=== PATIENT | female | born 1975 | race Caucasian/White ===

== ENCOUNTER 2020-02-15 04:03 | Emergency (ER) | payer BC, SELFPAY ==
[2020-02-15 04:11] VITALS: BP 128/88; PULSE 96; RESP 16; TEMP 36.9; O2SAT 99; BMI 21.2
--- NOTE | 2020-02-15 04:27 | W.ED.BACK ---
HPI - Back Pain/Injury General: Chief Complaint: Back Pain/Injury Stated Complaint: mid back pain Time Seen by Provider: 02/15/20 04:20 History of Present Illness: HPI Narrative: 44-year-old female presenting with back pain. She notes the pain is mainly on the left now. She started a couple of days ago with intermittent back pain, but she woke up at 1 AM with intense pain on the left side of her lower back. She has a history of kidney stones. She denies any fever. She is nauseated, but has not vomited. No blood in her urine. MD elicited complaint: back pain Pertinent past history: prior back pain and kidney stones Onset (ago): hour(s) Timing: constant Severity: severe Similar Symptoms Previously: Yes Quality: sharp and stabbing Location: lumbar spine and left flank Radiation: abdomen and groin Exacerbating factors: none Relieving factors: none Associated symptoms: Reports abdominal pain, chills and nausea; Deny dysuria, fever(s), hematuria, urinary urgency or vomiting Review of Systems Const: Reports: chills; Denies: fever(s) Eyes: Denies: blurry vision ENMT: Denies: odynophagia, swelling of lips/tongue or sinus pain Card: Denies: chest pain, palpitations or irregular heart rhythm Resp: Denies: dyspnea, productive cough, non-productive cough or wheezing GI: Reports: abdominal pain and nausea; Denies: vomiting : Denies: dysuria, urinary urgency or hematuria Musc: Reports: back pain; Denies: neck pain Skin/Breast: Denies: rash, pruritus or erythema Neuro: Denies: headache(s), dizziness, vertigo or seizure-like activity Psych: Denies: anxiety or auditory hallucinations Physical Exam Const: GENERAL APPEARANCE: well developed and other (in pain) ORIENTATION/CONSCIOUSNESS: Yes oriented to person, Yes oriented to place and Yes oriented to time HENMT: COMMON NORMALS: normocephalic, external ears normal and Normal external nose present HEAD & SCALP: normocephalic FACE & SINUS: normal facial exam NOSE: Normal external nose present and No nasal discharge present EXTERNAL EAR: Yes external ears normal Eye: COMMON NORMALS: Equal, round and reactive pupils present, EOMs intact bilaterally and conjunctivae normal EYELID: eyelids normal CONJUNCTIVA: Yes conjunctivae normal PUPIL: Yes Equal, round and reactive pupils present Neck/C-Spine: GENERAL: No tracheal deviation Chest: COMMONS NORMALS: normal inspection of the chest CHEST: No tenderness Resp: COMMON NORMALS: clear to auscultation bilaterally EFFORT & INSPECTION: No tachypneic, No respiratory distress, No retractions, No uses accessory muscles and No tracheal deviation AUSCULTATION: clear to auscultation bilaterally, no rhonchi, no wheezes and lung sounds not diminished Cardio: COMMON NORMALS: regular rate and regular rhythm RATE: regular rate RHYTHM: regular rhythm HEART SOUNDS: no murmurs PERIPHERAL PULSES: radial pulses present GI: INSPECTION: No abdominal distension AUSCULTATION: No Hyperactive bowel sounds present and No Hypoactive bowel sounds present PALPATION: No Guarding due to palpation present (GI) and No Rigid due to palpation PERCUSSION: no dullness to percussion and no tympanic to percussion : BLADDER/KIDNEY EXAM: Yes CVA tenderness on the left Back/Pelvis: GENERAL BACK: Yes CVA tenderness Neuro: SENSORIUM/ORIENTATION: Yes oriented to person, Yes oriented to place and Yes oriented to time Psych: COMMON NORMALS: mental status grossly normal Skin: COMMON NORMALS: no rashes or lesions noted GENERAL SKIN EXAM: no rashes or lesions noted Course Vital Signs: Vital signs: Vital Signs Temperature 98.4 F 02/15/20 04:11 Pulse Rate 100 02/15/20 06:16 Respiratory Rate 18 02/15/20 06:16 Blood Pressure 98/65 02/15/20 06:16 Pulse Oximetry 100 02/15/20 06:16 MDM - Back Pain/Injury MDM Narrative: Medical decision making narrative: 44-year-old female with complaints of left flank pain. No fever. She has a white count of 10.5. Her creatinine is 1. She has hematuria by urinalysis. No definite infection. Awaiting CT findings. There appears to be a UVJ stone. Lab Data: Labs: Lab Results 02/15/20 02/15/20 02/15/20 Range/Units 04:21 04:21 04:29 WBC 10.5 H (4.0-10.0) 10^3/ uL RBC 4.36 (4.1-5.3) 10^6/u L Hgb 13.6 (11.5-15.3) g/dL Hct 41.9 (37.0-47.0) % MCV 96.1 (81-99) fL MCH 31.2 (28.0-34.0) pg MCHC 32.5 (30.0-36.0) g/dL RDW 11.5 L (12.1-15.1) % Plt Count 244 (130-400) 10^3/c mm MPV 10.4 (7.4-10.4) fL Neut % (Auto) 72.8 % Lymph % (Auto) 19.0 % [place] % (Auto) 5.7 % Eos % (Auto) 1.6 % Baso % (Auto) 0.5 % Neut # (Auto) 7.65 (1.8-7.7) 10^3/u L Lymph # (Auto) 2.0 (0.8-4.8) 10^3/u L [place] # (Auto) 0.6 (0.2-0.9) 10^3/u L Eos # (Auto) 0.2 (0.0-0.8) 10^3/u L Baso # (Auto) 0.1 (0.0-0.1) 10^3/u L Nucleated RBC % (a uto) 0 % Nucleated RBCs # 0.0 /100WBC Sodium (136-145) mmol/L Potassium (3.5-5.1) mmol/L Chloride (98-107) mmol/L Carbon Dioxide (22-29) mmol/L Anion Gap (5-19) BUN (6-20) mg/dL Creatinine (0.5-0.9) mg/dL GFR Calculation (90-130) mL/min Glucose (65-115) mg/dL Calculated Osmolal ity (285-295) mOsm/k g Calcium (8.5-10.5) mg/dL Total Bilirubin (0.15-1.2) mg/dL AST (0-32) U/L ALT (0-33) U/L Alkaline Phosphata se (35-105) IU/L Total Protein (6.6-8.7) g/dL Albumin (3.5-5.2) g/dL Globulin (1.3-4.6) g/dL Lipase (13-60) U/L HCG, Qual Negative (Negative) Urine Color Yellow (Yellow) Urine Appearance Sl cloudy A (CLEAR) Urine pH 7 (5-7) Ur Specific Gravit y 1.010 (1.005-1.030) Urine Protein Neg (Negative) Urine Glucose (UA) Norm (Normal) Urine Ketones Negative (Negative) Urine Blood 3+ H (Negative) Urine Nitrate Negative (Negative) Urine Bilirubin Neg (Negative) Urine Urobilinogen Norm (Negative) mg/dL Ur Leukocyte Kori ase Negative (Negative) Urine RBC 50-80 H (0-2) /hpf Urine WBC 0-4 H (0-5) /hpf Ur Squamous Epith Cells 25-40 H (0-5) /hpf Amorphous Sediment Not Reportable Urine Bacteria 2+ H (NONE) /hpf Urine Mucus Trace /hpf 02/14/ Range/Units 04:29 WBC (4.0-10.0) 10^3/ uL RBC (4.1-5.3) 10^6/u L Hgb (11.5-15.3) g/dL Hct (37.0-47.0) % MCV (81-99) fL MCH (28.0-34.0) pg MCHC (30.0-36.0) g/dL RDW (12.1-15.1) % Plt Count (130-400) 10^3/c mm MPV (7.4-10.4) fL Neut % (Auto) % Lymph % (Auto) % [place] % (Auto) % Eos % (Auto) % Baso % (Auto) % Neut # (Auto) (1.8-7.7) 10^3/u L Lymph # (Auto) (0.8-4.8) 10^3/u L [place] # (Auto) (0.2-0.9) 10^3/u L Eos # (Auto) (0.0-0.8) 10^3/u L Baso # (Auto) (0.0-0.1) 10^3/u L Nucleated RBC % (a uto) % Nucleated RBCs # /100WBC Sodium 136 (136-145) mmol/L Potassium 3.9 (3.5-5.1) mmol/L Chloride 102 (98-107) mmol/L Carbon Dioxide 24 (22-29) mmol/L Anion Gap 13.9 (5-19) BUN 18 (6-20) mg/dL Creatinine 1.0 H (0.5-0.9) mg/dL GFR Calculation 60.5 L (90-130) mL/min Glucose 153 H (65-115) mg/dL Calculated Osmolal ity 287 (285-295) mOsm/k g Calcium 9.1 (8.5-10.5) mg/dL Total Bilirubin 0.3 (0.15-1.2) mg/dL AST 43 H (0-32) U/L ALT 44 H (0-33) U/L Alkaline Phosphata se 74 (35-105) IU/L Total Protein 6.9 (6.6-8.7) g/dL Albumin 4.3 (3.5-5.2) g/dL Globulin 2.6 (1.3-4.6) g/dL Lipase 19 (13-60) U/L HCG, Qual (Negative) Urine Color (Yellow) Urine Appearance (CLEAR) Urine pH (5-7) Ur Specific Gravit y (1.005-1.030) Urine Protein (Negative) Urine Glucose (UA) (Normal) Urine Ketones (Negative) Urine Blood (Negative) Urine Nitrate (Negative) Urine Bilirubin (Negative) Urine Urobilinogen (Negative) mg/dL Ur Leukocyte Kori ase (Negative) Urine RBC (0-2) /hpf Urine WBC (0-5) /hpf Ur Squamous Epith Cells (0-5) /hpf Amorphous Sediment Urine Bacteria (NONE) /hpf Urine Mucus /hpf Discharge Plan Discharge Patient Disposition: Home Clinical Impression: Ureterolithiasis Condition: Stable Prescriptions: New Percocet 7.5-325 mg tablet 1 tab PO Q6H PRN (Reason: pain) Qty: 14 RF: 0 Zofran 4 mg tablet 4 mg PO Q6H PRN (Reason: nausea and vomiting) Qty: 10 RF: 0 ketorolac 10 mg tablet 10 mg PO Q6H PRN (Reason: pain) Qty: 10 RF: 0 Discharge Orders: Discharge Order (Routine); Ordered 02/15/20 Ordered By: Pee Young Referrals: Jr Gil MD [Physician] - 4-7 days Gladis Garcia DO [Primary Care Provider] - Discharge Diet: Advance as tolerated Discharge Activity: Increase activity as tolerated Patient Instructions: Kidney Stones (ED) Activity Restrictions/Additional Instructions: Return for increasing pain despite treatment, vomiting liquids or medication, fever greater than 100, other concerning symptoms. Case management should contact you regarding a pelvic ultrasound in the next couple of days. If you do not hear from them dial [phone] and ask for the ER medical case worker. Coding Level of Care Code ED Traffic Line Painter for Adelita Fwd Exam Comprehensive
--- NOTE | 2020-02-15 04:28 | CTR_ITS ---
PROCEDURE INFORMATION: Exam: CT Abdomen And Pelvis Without Contrast Exam date and time: 02/15/2020 4:40 AM Age: 44 years old Clinical indication: Abdominal pain; Flank; Left; Additional info: L flank pain TECHNIQUE: Imaging protocol: Computed tomography of the abdomen and pelvis without contrast. Radiation optimization: All CT scans at this facility use at least one of these dose optimization techniques: automated exposure control; mA and/or kV adjustment per patient size (includes targeted exams where dose is matched to clinical indication); or iterative reconstruction. COMPARISON: CR XR KUB [id number] 12/18/2018 7:13 AM RADIATION DOSE METRICS: Total DLP (mGy-cm): 1176.6 FINDINGS: Lungs: The lung bases are clear. Liver: Unremarkable. Gallbladder and bile ducts: No definite gallbladder abnormality by CT. No biliary tree dilation. Pancreas: Unremarkable. Spleen: Unremarkable. Adrenals: Unremarkable. Kidneys and ureters: Suspect small bilateral intrarenal calculi, more numerous on the left. Mild left hydronephrosis and hydroureter. There is a 3-4 mm distal left ureteral calculus, at the UVJ. No right hydronephrosis or visible right ureteral calculus. Likely benign 12 mm cyst in the right kidney. Stomach and bowel: The stomach appears somewhat distended at the time of scanning. Please correlate clinically. There are no CT findings to strongly suggest diverticulitis. Appendix: The appendix is visualized and appears normal. Intraperitoneal space: No free air, ascites, or significant bowel distention. Vasculature: No evidence for abdominal aortic aneurysm. Lymph nodes: No retroperitoneal adenopathy. Urinary bladder: The urinary bladder appears essentially unremarkable by CT. Reproductive: The left ovary contains a 15-16 mm dominant follicle versus very small cyst. Significance uncertain/on likely due to small size. 5 x 4 x 5 cm cystic mass in the right pelvic cul-de-sac, presumably arising from the right ovary. This is larger than expected for a physiologic cyst although that is still a possibility. Other etiologies should be considered, including ovarian neoplasm such as cystadenoma or cystadenocarcinoma. Appropriate gynecological workup/follow-up recommended. No significant cul-de-sac fluid. Bones/joints: No significant acute finding. Soft tissues: No significant acute finding. CT/CT kidney stone [id number] IMPRESSION: 1. 3-4 mm distal left ureteral calculus, at the UVJ. 2. Mild left hydronephrosis and hydroureter. 3. 5 x 4 x 5 cm cystic mass in the right pelvic cul-de-sac, presumably arising from the right ovary. The appearance is not specific, but ovarian neoplasm should be excluded. Appropriate gynecological workup/follow-up recommended. Smaller cyst or dominant follicle in the left ovary, see above. 4. No diverticulitis. 5. Somewhat distended stomach. 6. Other findings discussed above. COMMENTS: Consistent with the [employer]'s Incidental Findings Committee white paper (J Am Laurent Radiol 2018): Any incidental renal lesion less than 1 cm or classified as too small to characterize, or any incidental cystic renal lesion characterized as simple-appearing, is likely benign. No follow-up imaging is recommended for these lesions per consensus recommendations based on imaging criteria. Radiation Dose CTDIVOL = (mGy): DLP = 1176.6 (mGy-cm)
[2020-02-15] MEDS: sodium chloride 0.9% 1,000 ML 999 ML IV (04:34)
[2020-02-15] MEDS: ondansetron 2 mg/ML SDV 2 mL 4 MG IVP (04:34)
[2020-02-15 04:35] VITALS: RESP 16; O2SAT 100
[2020-02-15] MEDS: HYDROmorphone 1 mg/mL INJ 1 mL IVP ×2 (04:35→05:08)
[2020-02-15 04:51] LABS: Basophils # 0.1 10^3/uL (0.0-0.1); Basophils % 0.5 %; Eosinophils # 0.2 10^3/uL (0.0-0.8); Eosinophils % 1.6 %; Hematocrit 41.9 % (37.0-47.0); Hemoglobin 13.6 g/dL (11.5-15.3); Mean Corpuscular HGB Conc 32.5 g/dL (30.0-36.0); Mean Corpuscular Hemoglobin 31.2 pg (28.0-34.0); Mean Corpuscular Volume 96.1 fL (81-99); Mean Platelet Volume 10.4 fL (7.4-10.4); Monocytes # 0.6 10^3/uL (0.2-0.9); Monocytes % 5.7 %; Neutrophils # 7.65 10^3/uL (1.8-7.7); Neutrophils % 72.8 %; Nucleated Red Blood Cells % 0 %; Platelet Count 244 10^3/cmm (130-400); Red Blood Count 4.36 10^6/uL (4.1-5.3); Red Cell Distribution Width 11.5 % (12.1-15.1); White Blood Count 10.5 10^3/uL (4.0-10.0)
[2020-02-15 04:54] LABS: Add Urine Microscopic? YES; Bilirubin Urine Neg (Negative); Blood Urine 3+ (Negative); Glucose Urine UA Norm (Normal); HCG Qualitative Urine. Negative (Negative); Ketones Urine Negative (Negative); Leukocyte Esterase Urine Negative (Negative); Nitrate Urine Negative (Negative); Protein Urine Neg (Negative); Urine Color Yellow (Yellow); Urobilinogen Urine Norm (Negative); pH Urine 7 (5-7)
[2020-02-15 05:03] LABS: RBC Urine 50-80 /hpf (0-2); WBC Urine 0-4 /hpf (0-5)
[2020-02-15 05:04] LABS: Add Urine Culture? No; Bacteria Urine 2+ /hpf; Mucus Urine TRACE /hpf; Squamous Epithelial Cell Urine 25-40 /hpf (0-5)
[2020-02-15] MEDS: metoclopramide 5 mg/mL SDV 2 mL 10 MG IVP (05:07)
[2020-02-15 05:08] VITALS: RESP 18; O2SAT 99
[2020-02-15 05:10] LABS: Alanine Aminotransferase 44 U/L (0-33); Albumin Level 4.3 g/dL (3.5-5.2); Alkaline Phosphatase 74 IU/L (35-105); Anion Gap 13.9 (5-19); Aspartate Amino Transferase 43 U/L (0-32); Blood Urea Nitrogen 18 mg/dL (6-20); Calcium 9.1 mg/dL (8.5-10.5); Carbon Dioxide 24 mmol/L (22-29); Chloride 102 mmol/L (98-107); Globulin 2.6 g/dL (1.3-4.6); Glomerular Filtration Rate 60.5 mL/min (90-130); Glucose 153 mg/dL (65-115); Lipase 19 U/L (13-60); Osmolality Calculated 287 mOsm/kg (285-295); Potassium 3.9 mmol/L (3.5-5.1); Sodium 136 mmol/L (136-145); Total Bilirubin 0.3 mg/dL (0.15-1.2); Total Protein 6.9 g/dL (6.6-8.7)
[2020-02-15] MEDS: ketorolac 30 mg/mL INJ IVP (06:14)
[2020-02-15 06:16] VITALS: BP 98/65; PULSE 100; RESP 18; O2SAT 100
[2020-02-15 06:26] VITALS: BP 98/65; PULSE 64; RESP 18; O2SAT 98
--- NOTE | 2020-02-16 10:23 | DCPLANNER ---
automotive finance manager had message to schedule a follow up appointment for patient for an outpatient ultrasound. automotive finance manager faxed order to centralized scheduling, will call for appointment information.
--- NOTE | 2020-02-17 10:45 | DCPLANNER ---
Patient has a follow up appointment scheduled for Monday, March 09, 2020 at 7:15. Centralized scheduling will contact patient with appointment information.
--- NOTE | 2020-03-11 11:24 | DCPLANNER ---
Patient had a follow up appointment scheduled for 03.09.20 for an ultrasound - patient did attend appointment.
== END 2020-02-15 06:27 | disposition home or self-care (01) ==
PROVIDERS: Emergency Provider Emergency Medicine; PCP Family Medicine
DX: N20.1 Calculus of ureter (principal)
CPT/HCPCS: 12345; 74176; 80053; 81001; 81025; 83690; 85025; 96361; 96374; 96375; 96376; 99283; 99284; J1170; J1885; J2405; J2765; J7030

== ENCOUNTER 2020-02-16 13:51 | Outpatient (CLI) | payer BC, SELFPAY ==
--- NOTE | 2020-02-16 14:00 | XR_ITS ---
WS: [id number] XR KUB [id number] REASON FOR EXAM: STONE FINDINGS: CT scan from the prior day demonstrated several 1 to 2 mm intrarenal calculi with a 3 to 4 mm calculu s at the left ureteral vesicle junction. Comparing to a previous plain film of the abdomen of 12/18/2018 I cannot identify any additional calcif ication that would represent the UVJ calculus identified CT scan. The small intrarenal calculi are not readily identifiable. XR/XR KUB [id number] IMPRESSION: Unable to identify CT demonstrated left UVJ calculus.
== END 2020-02-16 13:52 | disposition home or self-care (01) ==
LOC: RAD 13:54
PROVIDERS: PCP Family Medicine; Visit Provider Urology
DX: N20.9 Urinary calculus, unspecified (principal)
CPT/HCPCS: 74018; 81001

== ENCOUNTER 2020-02-26 12:27 | Outpatient (CLI) | payer BC, SELFPAY ==
--- NOTE | 2020-02-26 12:30 | XR_ITS ---
WS: [id number] KUB, 02/26/2020 Clinical Data: URETERAL STONE Comparison: KUB, 02/16/2020. Findings: No abnormal intraabdominal masses or calcifications are seen. There is no dilatated small bowel or ev idence of obstruction. There are phleboliths in the true pelvis. Fecal material and gas in the colon obscures detail over adi th kidneys. XR/XR KUB [id number] Impression: Negative KUB.
== END 2020-02-26 12:28 | disposition home or self-care (01) ==
LOC: RAD 12:29
PROVIDERS: PCP Family Medicine; Visit Provider Urology
DX: N20.1 Calculus of ureter (principal)
CPT/HCPCS: 74018; 81001; 82365; 88300

== ENCOUNTER 2020-03-09 07:14 | Outpatient (CLI) | payer BC, SELFPAY ==
--- NOTE | 2020-03-09 07:20 | US_ITS ---
WS: [id number] TRANSABDOMINAL PELVIC AND TRANSVAGINAL PELVIC ULTRASOUND HISTORY: PELVIC MASS COMPARISON: 01/11/2008 and 02/15/2020 Uterus: 6.3 cm x 4.0 cm x 2.5 cm. Uterus is slightly retroverted. There is a fibroid towards the fund us measuring 1.5 x 1.0 x 1.4 cm. Fibroids does abut the endometrium. Endometrium: 1.3 cm. Right ovary: 7.1 cm x 7.3 cm x 3.7 cm. There is an enlarged complex cystic lobulated mass in the RIG HT adnexa extending into the cul-de-sac. There are several complex cystic components. These are low l evel cystic masses with through transmission. Homogeneous low level through out. There is no increase d vascularity within the solid component. Largest complex cyst measures 4.3 x 3.0 cm. There is a thin septation the 2 cystic components. Left ovary: 3.6 cm x 3.5 cm x 2.9 cm. Cyst associated with the LEFT ovary measures 2.6 x 2.2 x 2.8 cm . No free fluid. US/US pelvic with transvaginal IMPRESSION: 1. Complex lobulated cystic mass in the RIGHT adnexa extending into the cul-de -sac. I favor this is probably an endometrioma. Hemorrhagic cyst remains within the differential. Similar appearance on a prior CT from 2007 and also 0. 2. Small uterine fibroid.
== END 2020-03-09 07:15 | disposition home or self-care (01) ==
LOC: US 07:15
PROVIDERS: PCP Family Medicine; Visit Provider Emergency Medicine
DX: R19.00 Intra-abdominal and pelvic swelling, mass and lump, unspecified site (principal); D25.9 Leiomyoma of uterus, unspecified
CPT/HCPCS: 76830; 76856

== ENCOUNTER 2020-06-30 09:14 | Outpatient (CLI) | payer BC, SELFPAY ==
--- NOTE | 2020-06-30 09:22 | US_ITS ---
WS: [id number] TRANSABDOMINAL PELVIC AND TRANSVAGINAL PELVIC ULTRASOUND HISTORY: OVARIAN CYST COMPLEX COMPARISON: None available. Uterus: 6.4 cm x 5.1 cm x 3.6 cm. Uterus is retroverted. Quality of examination is limited by positio jessica of the uterus and body habitus. Possible fibroid in the anterior myometrium measuring 1.7 x 1.5 x 1.6 cm. Endometrium: 1.1 cm. Normal endometrium. Endometrium is being slightly displaced by the adjacent fibr oid. Right ovary: 6.2 cm x 5.4 cm x 3.6 cm. Enlarged RIGHT ovary. The RIGHT ovary contains a complex cysti c mass with low echoes throughout. This mass measures 6.2 x 3.6 x 5.4 cm. There is no increased vascu larity. Left ovary: 5.6 cm x 6.1 cm x 5.4 cm. Enlarged ovary. There is a complex mass with septations and lac y appearance in the LEFT adnexa associated with the ovary. This mass measures 5.6 x 5.4 x 6.1 cm. No free fluid. US/US pelvic with transvaginal IMPRESSION: 1. Bilateral ovarian complex cystic masses. Due to the bilateral appearance th tucker are probably endometriomas. Ultrasound appearance of the LEFT adnexal mass may also be a hemorrhagic cyst. 2. RIGHT adnexal mass has increased in size since 03/09/2020. The LEFT adnexal mass is new. 3. Small uterine fibroid.
== END 2020-06-30 09:15 | disposition home or self-care (01) ==
LOC: US 09:17
PROVIDERS: PCP Family Medicine; Visit Provider Obstetrics & Gynecology Gynecologic Oncology
DX: N83.299 Other ovarian cyst, unspecified side (principal); D25.9 Leiomyoma of uterus, unspecified
CPT/HCPCS: 76830; 76856

== ENCOUNTER 2020-11-02 06:49 | Outpatient (CLI) | payer BC, SELFPAY ==
--- NOTE | 2020-11-02 07:04 | US_ITS ---
WS: [id number] TRANSABDOMINAL PELVIC AND TRANSVAGINAL PELVIC ULTRASOUND HISTORY: OVARIAN CYST COMPARISON: 06/30/2020 Uterus: 6.3 cm x 4.2 cm x 3.4 cm. Retroverted uterus. Hypoechoic mass with shadowing along the anteri or fundus measures 1.4 x 1.3 x 1.7 cm. Not changed significantly since the prior study. Endometrium: 0.8 cm. Mildly heterogeneous appearance of the endometrium. Bulbous appearance at the fu ndal portion of the endometrium is slightly less prominent as compared to the prior study. There is a small hyperechoic focus in the distal endometrium which was present on the prior study not changed. Right ovary: 6.2 cm x 4.6 cm x 3.6 cm. RIGHT ovary is enlarged and there is a complex hypoechoic mass transmission. This mass is complex and fills a large portion of the ovary. Mass measures approximate ly 3.1 x 2.7 x 3.4 cm. Size has decreased since the prior exam. Left ovary: 3.4 cm x 2.9 cm x 2.6 cm. Small cyst associated with the LEFT ovary measures 1.6 x 0.9 x 1.5 cm. Cyst is decreased in size since the prior study. No free fluid. US/US pelvic with transvaginal IMPRESSION: 1. Moderate decrease in size of the complex mass associated with the RIGHT ova ry now measuring 3.1 x 2.7 x 3.4 cm. Favor endometrioma. 2. Decrease in size of the LEFT ovarian cyst. 3. Stable uterine fibroid.
== END 2020-11-02 06:50 | disposition home or self-care (01) ==
LOC: RAD 06:53
PROVIDERS: PCP Family Medicine; Visit Provider Obstetrics & Gynecology Gynecologic Oncology
DX: N83.299 Other ovarian cyst, unspecified side (principal); N83.8 Other noninflammatory disorders of ovary, fallopian tube and broad ligament; D25.9 Leiomyoma of uterus, unspecified
CPT/HCPCS: 76830; 76856

== ENCOUNTER 2021-02-23 07:57 | Outpatient (CLI) | payer BC, SELFPAY ==
--- NOTE | 2021-02-23 08:00 | XR_ITS ---
WS: [id number] XR KUB [id number] REASON FOR EXAM: UROLITHIASIS FINDINGS: Possible small left renal calculus. No calculi identified in the right kidney. No calculi along the course of the ureters. No calculus overlying the bladder. No other significant abnormality of the abdomen or pelvis. XR/XR KUB [id number] IMPRESSION: Possible small calculus in the left kidney.
== END 2021-02-23 07:58 | disposition home or self-care (01) ==
LOC: RAD 08:00
PROVIDERS: PCP Family Medicine; Visit Provider Urology
DX: N20.9 Urinary calculus, unspecified (principal)
CPT/HCPCS: 74018; 81003

== ENCOUNTER 2021-11-22 07:16 | Outpatient (CLI) | payer BC, SELFPAY ==
--- NOTE | 2021-11-22 07:00 | XR_ITS ---
WS: [id number] KUB, AP view, 11/22/2021 Clinical Data: STONES Comparison: KUB, 02/23/2021. Findings: No abnormal intraabdominal masses are seen. There is no dilatated small bowel or evidence of obstruct ion. There are 2 small calcifications overlying the left kidney. The right kidney is obscured by fecal mat erial and bowel gas. There are phleboliths in the true pelvis. XR/XR KUB [id number] Impression: Probable small left renal calcifications.
== END 2021-11-22 07:17 | disposition home or self-care (01) ==
LOC: RAD 07:20
PROVIDERS: PCP Family Medicine; Visit Provider Nurse Practitioner Family
DX: N20.2 Calculus of kidney with calculus of ureter (principal)
CPT/HCPCS: 74018; 81003

== ENCOUNTER 2022-03-08 12:43 | Outpatient (CLI) | payer BC, SELFPAY ==
--- NOTE | 2022-03-08 12:58 | XR_ITS ---
WS: [id number] Exam: XR KUB [id number] Date/Time of Exam: 03/08/2022 1:06 PM Reason For Exam: Urolithiasis No bowel obstruction or free air. Calcifications superimpose left kidney apparently representing know n renal stones. No sign of organ enlargement. Moderate stool retention in the upper:. Regional bony s tructures are intact. Nonspecific pelvic calcifications probably phleboliths. XR/XR KUB [id number] IMPRESSION: 1. No acute abdominal process. 2. Calcification superimpose the left renal silhouette and apparently represent known renal stones.
== END 2022-03-08 12:44 | disposition home or self-care (01) ==
LOC: RAD 12:44
PROVIDERS: PCP Family Medicine; Visit Provider Urology
DX: N20.9 Urinary calculus, unspecified (principal)
CPT/HCPCS: 74018; 81003

== ENCOUNTER 2022-05-03 09:03 | Outpatient (CLI) | payer BC, SELFPAY ==
--- NOTE | 2022-05-03 09:12 | MM_ITS ---
WS: [id number] BILATERAL SCREENING DIGITAL TOMOSYNTHESIS MAMMOGRAM WITH CAD HISTORY: SCREENING COMPARISON: None available. Bilateral CC and MLO views with tomosynthesis and synthetic mammography submitted. Computer aided det ection analyzed. Breast composition: The breasts are heterogeneously dense, which may obscure small masses. No suspici ous masses, microcalcifications or architectural distortion. Benign scattered punctate calcifications . MM/[place] [id number] IMPRESSION: BI-RADS: 2-Benign FOLLOW UP: 1 Year Follow-up
== END 2022-05-03 09:04 | disposition home or self-care (01) ==
LOC: RAD 09:03
PROVIDERS: PCP Family Medicine; Visit Provider Family Medicine
DX: Z12.31 Encounter for screening mammogram for malignant neoplasm of breast (principal)
CPT/HCPCS: 77063; 77067

== ENCOUNTER 2023-11-12 14:16 | Outpatient (CLI) | payer BC, SELFPAY ==
--- NOTE | 2023-11-12 14:23 | MM_ITS ---
WS: [id number] BILATERAL 3D TOMOSYNTHESIS DIGITAL SCREENING MAMMOGRAPHY WITH CAD CLINICAL INFORMATION: SCREENING HISTORY: Screening mammogram. No current complaints. COMPARISON: 2021 TECHNIQUE: Bilateral CC and MLO views. FINDINGS: The breasts are composed of heterogeneous fibroglandular density tissue, which can limit the detectio n of small underlying mass lesions. No suspicious mass, asymmetry, calcifications, or architectural d istortion. No evidence of malignancy. A few incidental punctate calcifications. MM/[place] [id number] IMPRESSION: BI-RADS: 2-Benign FOLLOW UP: 1 Year Follow-up Recommend return to annual screening mammography.
== END 2023-11-12 14:17 | disposition home or self-care (01) ==
LOC: RAD 14:16
PROVIDERS: PCP Family Medicine; Visit Provider Family Medicine
DX: Z12.31 Encounter for screening mammogram for malignant neoplasm of breast (principal); R92.333 Mammographic heterogeneous density, bilateral breasts; R92.323 Mammographic fibroglandular density, bilateral breasts; R92.1 Mammographic calcification found on diagnostic imaging of breast
CPT/HCPCS: 77063; 77067

== ENCOUNTER 2024-01-13 13:25 | Emergency (ER) | payer BC, SELFPAY ==
[2024-01-13 13:29] VITALS: BP 143/80; PULSE 80; RESP 14; TEMP 36.8; O2SAT 99; BMI 23.5
--- NOTE | 2024-01-13 13:37 | CTR_ITS ---
PROCEDURE INFORMATION: Exam: CT Abdomen And Pelvis Without Contrast Exam date and time: 01/13/2024 2:31 PM Age: 48 years old Clinical indication: Abdominal pain; Flank; Left; Additional info: Flank pain TECHNIQUE: Imaging protocol: Computed tomography of the abdomen and pelvis without contrast. Axial, coronal and sagittal reformatted images were created and reviewed. Radiation optimization: All CT scans at this facility use at least one of these dose optimization techniques: automated exposure control; mA and/or kV adjustment per patient size (includes targeted exams where dose is matched to clinical indication); or iterative reconstruction. COMPARISON: CT kidney stone [id number] 02/15/2020 5:09 AM RADIATION DOSE METRICS: Total DLP (mGy-cm): 437.58 FINDINGS: Liver: Unremarkable. Gallbladder and biliary ducts: No radiodense gallstones. No biliary ductal dilatation. Pancreas: Unremarkable. Spleen: Unremarkable. Adrenal glands: Normal. No mass. Kidneys and ureters: Mild left-sided hydronephrosis and perinephric edema, secondary to a 6 mm proximal left ureteral calculus (axial image 97 is and coronal image 65) and a 5 mm mid left ureteral calculus (axial image 135 and coronal image 69). Nonobstructing bilateral renal calculi. Stomach and bowel: No bowel wall thickening. No obstruction. No pneumatosis. Appendix: Normal. Intraperitoneal space: No free fluid. No organized fluid collection. No free air. Vasculature: Unremarkable. No aneurysm. Lymph nodes: No pathologically enlarged lymph nodes. Urinary bladder: Unremarkable as visualized. Reproductive: Bilateral adnexal cystic lesions, measuring up to 7.3 x 5.1 cm on the right. Bones/joints: No acute osseous abnormality. Soft tissues: Small, fat containing umbilical hernia. CT/CT kidney stone [id number] IMPRESSION: 1. Mild left-sided hydronephrosis and perinephric edema, secondary to a 6 mm proximal left ureteral calculus and a 5 mm mid left ureteral calculus. 2. Bilateral adnexal cystic lesions, measuring up to 7.3 x 5.1 cm on the right. If clinically indicated, pelvic ultrasound may be obtained for further evaluation. 3. Additional findings, as above.
--- NOTE | 2024-01-13 13:46 | W.ED.FEMALGU ---
HPI - Female Genitourinary General: Chief complaint: Urogenital-Female Stated complaint: left side pain extends to hip for a week Time Seen by Provider: 01/13/24 13:35 History of Present Illness: 48-year-old female presents emergency room with complaints of left-sided flank pain rating from her flank down into her groin region. She has had kidney stones in the past she states this feels much like a kidney stone. She denies any fever sweats or chills. She is currently having her menstrual cycle states she is unable to tell if she has had any gross hematuria. She is having some sweats and chills at the moment. Associated symptoms: Deny abdominal pain Related Data Home Medications Medication Instructions Recorded Confirmed naproxen 500 mg tablet 500 mg PO BID 03/08/22 03/08/22 nitrofurantoin 100 mg PO BID PRN 03/08/22 monohydrate/macrocrystals 100 mg capsule (Macrobid) Previous Rx's Medication Instructions Recorded oxycodone-acetaminophen 7.5 mg-325 1 tab PO Q6H PRN pain #14 tabs 02/14/20 mg tablet (Percocet) tamsulosin 0.4 mg capsule 0.4 mg PO DAILY #30 caps 11/22/21 oxycodone-acetaminophen 7.5 mg-325 1 tab PO Q6H PRN pain #20 tabs 01/13/24 mg tablet (Percocet) promethazine 25 mg tablet 25 mg PO Q6H PRN nausea and 01/13/24 vomiting #20 tabs tamsulosin 0.4 mg capsule 0.4 mg PO DAILY #20 caps 01/13/24 Allergies Allergy/AdvReac Type Severity Reaction Status Date / Time No Known Allergies Allergy Verified 01/13/24 13:33 Review of Systems Const: Denies: fever(s) or chills Card: Denies: chest pain Resp: Denies: dyspnea GI: Denies: abdominal pain : Denies: dysuria, urinary frequency or urinary urgency Musc: Denies: neck pain or back pain Skin/Breast: Denies: rash PFSH ED PFSH: Medical History Left ureteral calculus Resolved with spontaneous passage Recurrent UTI Urolithiasis Multi stone former with both spontaneous passage and surgical intervention required previously. 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 Physical Exam Const: GENERAL APPEARANCE: cooperative ORIENTATION/CONSCIOUSNESS: Yes awake, Yes oriented to person, Yes oriented to place and Yes oriented to time HENMT: COMMON NORMALS: normocephalic, atraumatic and hearing grossly normal bilaterally HEAD & SCALP: normocephalic and atraumatic Resp: COMMON NORMALS: normal respiratory effort, No retractions, No use of accessory muscles and clear to auscultation bilaterally AUSCULTATION: clear to auscultation bilaterally Cardio: COMMON NORMALS: regular rate, regular rhythm and No murmurs present (Cardio) RATE: regular rate RHYTHM: regular rhythm GI: COMMON NORMALS: Soft to palpation and No hepatosplenomegaly present AUSCULTATION: Yes normoactive bowel sounds PALPATION: Yes Soft to palpation, No Tenderness to palpation present (GI), No Guarding due to palpation present (GI) and Yes No hepatosplenomegaly present Extremity: COMMON NORMALS: normal to inspection, capillary refill normal, no clubbing, cyanosis or edema, no calf tenderness and no pedal edema Neuro: SENSORIUM/ORIENTATION: Yes oriented to person, Yes oriented to place and Yes oriented to time Skin: COMMON NORMALS: no rashes or lesions noted GENERAL SKIN EXAM: no rashes or lesions noted Course Vital Signs: Vital signs: Vital Signs Temperature 98.2 F 01/13/24 13:29 Pulse Rate 83 01/13/24 14:00 Respiratory Rate 17 01/13/24 15:15 Blood Pressure 147/79 01/13/24 16:25 Pulse Oximetry 98 01/13/24 14:00 Oxygen Delivery Me thod Room Air 01/13/24 14:00 MDM - Female Medical Decision Making Patient has a mid and distal left ureteral stone no leukocytosis no sign of cystitis pyelonephritis on CT or on UA. Pain was eventually able to be controlled after adequate dose of morphine and then a dose of Dilaudid. Patient wishes to go home we will put her on tamsulosin. Gave her Percocet for pain as well as promethazine return if pain is not controlled. She has been seen by urology in [place] where she will contact them tomorrow to be reevaluated. Medical Records I reviewed the patient's medical records. Lab Data I reviewed the patient's lab results. 01/13/24 13:45 01/13/24 15:00 Radiology Impressions Abdomen/Pelvis CT 01/13/24 13:37 IMPRESSION: 1. Mild left-sided hydronephrosis and perinephric edema, secondary to a 6 mm proximal left ureteral calculus and a 5 mm mid left ureteral calculus. 2. Bilateral adnexal cystic lesions, measuring up to 7.3 x 5.1 cm on the right. If clinically indicated, pelvic ultrasound may be obtained for further evaluation. 3. Additional findings, as above. Laboratory Results WBC 9.09 10^3/uL (3.29-11.43) 01/13/24 13:45 RBC 4.07 10^6/uL (3.85-5.65) 01/13/24 13:45 Hgb 13.10 g/dL (11.27-16.99) 01/13/24 13:45 Hct 39.0 % (36-47) 01/13/24 13:45 MCV 95.8 fl (85-98) 01/13/24 13:45 MCH 32.2 pg (27-33) 01/13/24 13:45 MCHC 33.6 g/dL (30-55) 01/13/24 13:45 RDW 11.2 % (12.1-15.1) L 01/13/24 13:45 Plt Count 227 10^3/cmm (157-399) 01/13/24 13:45 MPV 11.2 fL (7.4-10.4) H 01/13/24 13:45 Neut % (Auto) 73.1 % 01/13/24 13:45 Lymph % (Auto) 17.4 % 01/13/24 13:45 [place] % (Auto) 5.3 % 01/13/24 13:45 Eos % (Auto) 3.3 % 01/13/24 13:45 Baso % (Auto) 0.6 % 01/13/24 13:45 Neut # (Auto) 6.65 10^3/uL (1.8-7.7) 01/13/24 13:45 Lymph # (Auto) 1.6 10^3/uL (0.8-4.8) 01/13/24 13:45 [place] # (Auto) 0.5 10^3/uL (0.2-0.9) 01/13/24 13:45 Eos # (Auto) 0.3 10^3/uL (0.0-0.8) 01/13/24 13:45 Baso # (Auto) 0.1 10^3/uL (0.0-0.1) 01/13/24 13:45 Nucleated RBC % (auto) 0 % 01/13/24 13:45 Nucleated RBCs # 0.0 /100WBC 01/13/24 13:45 Sodium 139 mmol/L (136-145) 01/13/24 15:00 Potassium 4.0 mmol/L (3.5-5.1) 01/13/24 15:00 Chloride 104 mmol/L (98-107) 01/13/24 15:00 Carbon Dioxide 21 mmol/L (22-29) L 01/13/24 15:00 Anion Gap 18.0 (5-19) 01/13/24 15:00 BUN 16 mg/dL (6-20) 01/13/24 15:00 Creatinine 0.7 mg/dL (0.5-0.9) 01/13/24 15:00 GFR Calculation 89.7 mL/min (90-130) L 01/13/24 15:00 Glucose 117 mg/dL (65-115) H 01/13/24 15:00 Calculated Osmolality 290 mOsm/kg (285-295) 01/13/24 15:00 Calcium 7.9 mg/dL (8.5-10.5) L 01/13/24 15:00 Total Bilirubin 0.2 mg/dL (0.15-1.2) 01/13/24 15:00 AST 20 U/L (0-32) 01/13/24 15:00 ALT 20 U/L (0-33) 01/13/24 15:00 Alkaline Phosphatase 75 U/L (35-105) 01/13/24 15:00 Total Protein 6.6 g/dL (6.6-8.7) 01/13/24 15:00 Albumin 3.9 g/dL (3.5-5.2) 01/13/24 15:00 Globulin 2.7 g/dL (1.3-4.6) 01/13/24 15:00 Urine Color Yellow (Yellow) 01/13/24 14:16 Urine Appearance Cloudy (CLEAR) A 01/13/24 14:16 Urine pH 7.5 (5-7) 01/13/24 14:16 Ur Specific [place] 1.014 (1.005-1.030) 01/13/24 14:16 Urine Protein Trace (Negative) A 01/13/24 14:16 Urine Glucose (UA) Negative (Normal) 01/13/24 14:16 Urine Ketones Negative (Negative) 01/13/24 14:16 Urine Blood 3+ (Negative) A 01/13/24 14:16 Urine Nitrate Negative (Negative) 01/13/24 14:16 Urine Bilirubin Negative (Negative) 01/13/24 14:16 Urine Urobilinogen 1.0 mg/dL (Negative) 01/13/24 14:16 Ur Leukocyte Esterase Negative (Negative) 01/13/24 14:16 Urine RBC >100 /hpf (0-2) H 01/13/24 14:16 Urine WBC 0-5 /hpf (0-5) 01/13/24 14:16 Ur Squamous Epith Cells 0-5 /hpf (0-5) 01/13/24 14:16 Amorphous Sediment Not Reportable 01/13/24 14:16 Urine Bacteria None seen /hpf (NONE) 01/13/24 14:16 Hyaline Casts 1.65 /lpf 01/13/24 14:16 All radiology interpretation(s) finalized by discharge Discharge Plan Discharge Patient Disposition: Home Clinical Impression: Urolithiasis Qualifiers: Urinary calculus location: kidney and ureter Qualified Code(s): N20.2 - Calculus of kidney with calculus of ureter Condition: Stable Prescriptions: New promethazine 25 mg tablet 25 mg PO Q6H PRN (Reason: nausea and vomiting) Qty: 20 0RF Percocet 7.5-325 mg tablet 1 tab PO Q6H PRN (Reason: pain) Qty: 20 0RF tamsulosin 0.4 mg capsule 0.4 mg PO DAILY Qty: 20 0RF No Action nitrofurantoin monohyd/m-cryst [Macrobid] 100 mg capsule 100 mg PO BID PRN Rx Instructions: must administer with a meal/food naproxen 500 mg tablet 500 mg PO BID tamsulosin 0.4 mg capsule 0.4 mg PO DAILY Qty: 30 1RF Percocet 7.5-325 mg tablet 1 tab PO Q6H PRN (Reason: pain) Qty: 14 0RF Discharge Orders: Discharge ED (Routine); Ordered 01/13/24 Ordered By: Justin Razo Referrals: Gladis Garcia, [Primary Care Provider] - Discharge Diet: Usual diet Discharge Activity: Resume usual activity Patient Instructions: Kidney Stones (ED), Opioid Safety, Pain Management Activity Restrictions/Additional Instructions: Thank you for choosing [facility] for your healthcare needs today. It is very important that you follow up as instructed or that you return to the Emergency Department should you have concerns or if your condition changes or worsens in any way. Coding Level of Care Code ED Forest Products Gatherer for Adelita Burger
[2024-01-13 14:00] VITALS: BP 124/87; PULSE 83; O2SAT 98
[2024-01-13 14:02] LABS: Basophils # 0.1 10^3/uL (0.0-0.1); Basophils % 0.6 %; Eosinophils # 0.3 10^3/uL (0.0-0.8); Eosinophils % 3.3 %; Lymphocytes # 1.6 10^3/uL (0.8-4.8); Lymphocytes % 17.4 %; Mean Corpuscular HGB Conc 33.6 g/dL (30-55); Mean Corpuscular Hemoglobin 32.2 pg (27-33); Mean Corpuscular Volume 95.8 fl (85-98); Mean Platelet Volume 11.2 fL (7.4-10.4); Monocytes # 0.5 10^3/uL (0.2-0.9); Monocytes % 5.3 %; Neutrophils # 6.65 10^3/uL (1.8-7.7); Neutrophils % 73.1 %; Nucleated Red Blood Cells % 0 %; Platelet Count 227 10^3/cmm (157-399); Red Blood Count 4.07 10^6/uL (3.85-5.65); Red Cell Distribution Width 11.2 % (12.1-15.1); White Blood Count 9.09 10^3/uL (3.29-11.43)
[2024-01-13] MEDS: sodium chloride 0.9% 1,000 ML 999 ML IV (14:12)
[2024-01-13 14:13] VITALS: RESP 17
[2024-01-13] MEDS: ondansetron 2 mg/ML SDV 2 mL 4 MG IVP (14:13)
[2024-01-13] MEDS: morphine 4 mg/mL SDV 1 mL IVP ×2 (14:13→15:15)
[2024-01-13 14:29] LABS: Charge for UA Resulting for Rev
[2024-01-13 14:32] LABS: Bilirubin Urine Negative (Negative); Blood Urine 3+ (Negative); Glucose Urine UA Negative (Normal); Ketones Urine Negative (Negative); Leukocyte Esterase Urine Negative (Negative); Nitrate Urine Negative (Negative); Protein Urine Trace (Negative); Specific Gravity, Urine 1.014 (1.005-1.030); Urine Appearance Cloudy (CLEAR); Urine Color Yellow (Yellow); pH Urine 7.5 (5-7)
[2024-01-13 14:36] LABS: Bacteria Urine None Seen /hpf; Hyaline Casts Urine 1.65 /lpf; RBC Urine >100 /hpf (0-2); Squamous Epithelial Cell Urine 0-5 /hpf (0-5); WBC Urine 0-5 /hpf (0-5)
[2024-01-13 14:56] LABS: Add Urine Culture? Yes
[2024-01-13 15:15] VITALS: RESP 17
[2024-01-13] MEDS: diphenhydrAMINE 50 mg/mL SDV 1mL 25 MG IVP (15:16)
[2024-01-13 15:29] LABS: Alanine Aminotransferase 20 U/L (0-33); Albumin Level 3.9 g/dL (3.5-5.2); Alkaline Phosphatase 75 U/L (35-105); Aspartate Amino Transferase 20 U/L (0-32); Blood Urea Nitrogen 16 mg/dL (6-20); Calcium 7.9 mg/dL (8.5-10.5); Carbon Dioxide 21 mmol/L (22-29); Chloride 104 mmol/L (98-107); Creatinine Clr Calc Pharmacy 100.6564; Globulin 2.7 g/dL (1.3-4.6); Glomerular Filtration Rate 89.7 mL/min (90-130); Glucose 117 mg/dL (65-115); Osmolality Calculated 290 mOsm/kg (285-295); Sodium 139 mmol/L (136-145); Total Bilirubin 0.2 mg/dL (0.15-1.2); Total Protein 6.6 g/dL (6.6-8.7)
[2024-01-13 16:25] VITALS: BP 147/79
[2024-01-13] MEDS: HYDROmorphone 1 mg/mL INJ 1 mL 0.5 MG IVP (16:34)
[2024-01-13 17:24] VITALS: BP 136/82; PULSE 94; O2SAT 97
--- NOTE | 2024-01-15 07:58 | DCPLANNER ---
Referral sent to [facility] urology
== END 2024-01-13 17:25 | disposition home or self-care (01) ==
PROVIDERS: Emergency Provider Family Medicine; PCP Family Medicine
DX: N20.2 Calculus of kidney with calculus of ureter (principal)
CPT/HCPCS: 36415; 74176; 80053; 81003; 81015; 85025; 87086; 96361; 96374; 96375; 96376; 99285; J1170; J1200; J2270; J2405; J7030

== ENCOUNTER 2024-04-29 19:48 | Emergency (ER) | payer BC, SELFPAY ==
--- NOTE | 2024-04-29 19:53 | ECG_ITS ---
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 Measurements Intervals [place] Rate: 91 P: 76 CT: 150 QRS: 92 QRSD: 104 T: 79 QT: 355 QTc: 437 Interpretive Statements SINUS RHYTHM BORDERLINE RIGHT AXIS DEVIATION [QRS AXIS > 90] INCOMPLETE RIGHT BUNDLE BRANCH BLOCK [90+ ms QRS DURATION, TERMINAL R IN V1/V2, 40+ ms S IN I/aVL/V4/V5/V6] No previous ECG available for comparison Electronically Signed On 04-29-2024 21:29:08 HOUSEKEEPING MANAGER by Lubna Huston M.D. [email or web address]
--- NOTE | 2024-04-29 19:57 | XRR_ITS ---
PROCEDURE INFORMATION: Exam: XR Chest Exam date and time: 04/29/2024 8:40 PM Age: 48 years old Clinical indication: Pain; Chest pressure; Additional info: Cp TECHNIQUE: Imaging protocol: Radiologic exam of the chest. Views: 1 view. COMPARISON: CT kidney stone [id number] 01/13/2024 2:31 PM FINDINGS: Lungs: Unremarkable. No consolidation. Pleural spaces: Unremarkable. No pleural effusion. No pneumothorax. Heart/Mediastinum: Unremarkable. No cardiomegaly. Bones/joints: Unremarkable. XR/XR chest 1V portable [id number] IMPRESSION: No acute findings.
[2024-04-29 19:59] VITALS: BP 146/94; PULSE 90; RESP 16; TEMP 36.8; O2SAT 98; BMI 23.5
[2024-04-29 20:18] LABS: Basophils # 0.1 10^3/uL (0.0-0.1); Basophils % 0.9 %; Eosinophils # 0.4 10^3/uL (0.0-0.8); Hematocrit 42.3 % (36-47); Lymphocytes # 2.5 10^3/uL (0.8-4.8); Lymphocytes % 32.9 %; Mean Corpuscular HGB Conc 32.9 g/dL (30-55); Mean Corpuscular Hemoglobin 31.2 pg (27-33); Mean Corpuscular Volume 95.1 fl (85-98); Mean Platelet Volume 9.8 fL (7.4-10.4); Monocytes # 0.6 10^3/uL (0.2-0.9); Monocytes % 7.7 %; Neutrophils # 4.04 10^3/uL (1.8-7.7); Neutrophils % 53.4 %; Nucleated Red Blood Cells % 0 %; Platelet Count 264 10^3/cmm (157-399); Red Blood Count 4.45 10^6/uL (3.85-5.65); Red Cell Distribution Width 11.5 % (12.1-15.1); White Blood Count 7.57 10^3/uL (3.29-11.43)
[2024-04-29 20:34] LABS: Troponin(5th) Baseline < 6 ng/L (0-10)
[2024-04-29 20:50] LABS: Alanine Aminotransferase 25 U/L (0-33); Albumin Level 4.5 g/dL (3.5-5.2); Alkaline Phosphatase 85 U/L (35-105); Anion Gap 15.1 (5-19); Aspartate Amino Transferase 22 U/L (0-32); Blood Urea Nitrogen 18 mg/dL (6-20); Calcium 9.4 mg/dL (8.5-10.5); Carbon Dioxide 27 mmol/L (22-29); Chloride 103 mmol/L (98-107); Creatinine Clr Calc Pharmacy 100.6564; Globulin 2.4 g/dL (1.3-4.6); Glomerular Filtration Rate 89.7 mL/min (90-130); Glucose 99 mg/dL (65-115); Lipase 28 U/L (13-60); Osmolality Calculated 294 mOsm/kg (285-295); Potassium 4.1 mmol/L (3.5-5.1); Sodium 141 mmol/L (136-145); Total Bilirubin 0.2 mg/dL (0.15-1.2); Total Protein 6.9 g/dL (6.6-8.7)
--- NOTE | 2024-04-29 21:58 | ED_ITS ---
HPI - Chest Pain 2 General: Chief Complaint: Chest Pain Stated Complaint: chest pain Time Seen by Provider: 04/29/24 21:47 History of Present Illness: This is a healthy 48-year-old female who presents the emergency room with chest pain. She has no cardiac history. No smoking history. She says her blood pressures normally on the low side of normal. She says today she had some discomfort in her epigastric region that she thought might be indigestion. She then had some pain in her left shoulder/scapular region. She felt fatigued and weak. She said she felt tired in my chest . No fevers. No cough. No lower extremity swelling. No nausea or vomiting. Related Data Home Medications Medication Instructions Recorded Confirmed naproxen 500 mg tablet 500 mg PO BID 03/08/22 03/08/22 nitrofurantoin 100 mg PO BID PRN 03/08/22 monohydrate/macrocrystals 100 mg capsule (Macrobid) Previous Rx's Medication Instructions Recorded oxycodone-acetaminophen 7.5 mg-325 1 tab PO Q6H PRN pain #14 tabs 02/14/20 mg tablet (Percocet) tamsulosin 0.4 mg capsule 0.4 mg PO DAILY #30 caps 11/22/21 oxycodone-acetaminophen 7.5 mg-325 1 tab PO Q6H PRN pain #20 tabs 01/13/24 mg tablet (Percocet) promethazine 25 mg tablet 25 mg PO Q6H PRN nausea and 01/13/24 vomiting #20 tabs tamsulosin 0.4 mg capsule 0.4 mg PO DAILY #20 caps 01/13/24 Allergies Allergy/AdvReac Type Severity Reaction Status Date / Time No Known Allergies Allergy Verified 04/29/24 19:59 Review of Systems 2 Narrative: Constitutional symptoms: Negative except as documented in HPI. Skin symptoms: Negative except as documented in HPI. Eye symptoms: Negative except as documented in HPI. ENMT symptoms: Negative except as documented in HPI. Respiratory symptoms: Negative except as documented in HPI. Cardiovascular symptoms: Negative except as documented in HPI. Gastrointestinal symptoms: Negative except as documented in HPI. Genitourinary symptoms: Negative except as documented in HPI. Musculoskeletal symptoms: Negative except as documented in HPI. Neurologic symptoms: Negative except as documented in HPI. Psychiatric symptoms: Negative except as documented in HPI. Endocrine symptoms: Negative except as documented in HPI. PFSH ED 2 PFSH: Medical History Left ureteral calculus Resolved with spontaneous passage Recurrent UTI Urolithiasis Multi stone former with both spontaneous passage and surgical intervention required previously. 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 Skin: Warm, dry. Head: Normocephalic, atraumatic. Neck: Supple, trachea midline. Eye: Extraocular movements are intact. Ears, nose, mouth and throat: mucosa moist. Cardiovascular: Regular, Normal peripheral perfusion. Respiratory: Lungs are clear to auscultation, respirations are non-labored, breath sounds are equal, Symmetrical chest wall expansion. Gastrointestinal: Soft, Nontender, Non distended Musculoskeletal: Normal ROM, no deformity. Neurological: Alert and oriented, No focal neurological deficit observed. Psychiatric: Cooperative, appropriate mood & affect. Course 2 Vital Signs: Vital signs: Vital Signs Temperature 98.2 F 04/29/24 19:59 Pulse Rate 82 04/29/24 22:23 Respiratory Rate 17 04/29/24 22:23 Blood Pressure 154/95 04/29/24 22:23 Pulse Oximetry 100 04/29/24 22:23 Oxygen Delivery Me thod Room Air 04/29/24 22:23 MDM - Chest Pain Medical Decision Making Differential diagnosis for patient with chest pain includes but is not limited to and based on the above HPI, review of systems and physical exam: Pneumonia. unstable angina. angina. Acute coronary syndrome / [place]. Pulmonary embolism. Costochondritis / musculoskeletal. Pleurisy. Pericarditis. Esophageal spasm. Pancreatis. Cholecystitis. Orders placed to evaluate differential diagnosis based on the above differential, HPI and physical exam EKG: Time 1952. Rate 91. Normal sinus rhythm, No ST-T changes, no ectopy, normal HI & QRS intervals, This was reviewed and interpreted by myself the ER physician at 1957. Chest x-ray: No acute process. No infiltrate. No pneumothorax. This was reviewed and interpreted by myself the emergency room physician. I also reviewed the radiology report. Lab Review: Laboratory results were reviewed and interpreted by myself the emergency room physician. Lab work is unremarkable. No leukocytosis. No anemia. No renal failure. Serial cardiac enzymes are negative. HEART Pathway for Early Discharge in Acute Chest Pain from [employer] on 04/29/2024 All calculations should be rechecked by clinician prior to use RESULT SUMMARY: 1 points HEART Pathway Score Low risk 0.9-1.7% 30-day MACE Repeat troponin at 3 hours and if negative, discharge home with outpatient follow-up. INPUTS: History ?> 0 = Slightly suspicious EKG ?> 0 = Normal Age ?> 1 = 45-64 Risk factors ?> 0 = No known risk factors Initial troponin ?> 0 = <=ormal limit I reviewed the patient's medical record. Reexamination: Patient remained stable. No increased work of breathing. No altered mental status. No focal motor deficits. Assessment and plan: Noncardiac chest pain - Discharged home - Discussed findings and plan with patient. Answered any questions. - All laboratory values were reviewed and interpreted personally by myself, the ER physician - All imaging was reviewed and interpreted personally by myself, the ER physician. - Evaluation and treatment of this problem were appropriate in the emergency setting Lab Data 04/29/24 20:05 04/29/24 20:05 Radiology Impressions Chest X-Ray 04/29/24 19:57 IMPRESSION: No acute findings. Laboratory Results WBC 7.57 10^3/uL (3.29-11.43) 04/29/24 20:05 RBC 4.45 10^6/uL (3.85-5.65) 04/29/24 20:05 Hgb 13.90 g/dL (11.27-16.99) 04/29/24 20:05 Hct 42.3 % (36-47) 04/29/24 20:05 MCV 95.1 fl (85-98) 04/29/24 20:05 MCH 31.2 pg (27-33) 04/29/24 20:05 MCHC 32.9 g/dL (30-55) 04/29/24 20:05 RDW 11.5 % (12.1-15.1) L 04/29/24 20:05 Plt Count 264 10^3/cmm (157-399) 04/29/24 20:05 MPV 9.8 fL (7.4-10.4) 04/29/24 20:05 Neut % (Auto) 53.4 % 04/29/24 20:05 Lymph % (Auto) 32.9 % 04/29/24 20:05 [place] % (Auto) 7.7 % 04/29/24 20:05 Eos % (Auto) 5.0 % 04/29/24 20:05 Baso % (Auto) 0.9 % 04/29/24 20:05 Neut # (Auto) 4.04 10^3/uL (1.8-7.7) 04/29/24 20:05 Lymph # (Auto) 2.5 10^3/uL (0.8-4.8) 04/29/24 20:05 [place] # (Auto) 0.6 10^3/uL (0.2-0.9) 04/29/24 20:05 Eos # (Auto) 0.4 10^3/uL (0.0-0.8) 04/29/24 20:05 Baso # (Auto) 0.1 10^3/uL (0.0-0.1) 04/29/24 20:05 Nucleated RBC % (auto) 0 % 04/29/24 20:05 Nucleated RBCs # 0.0 /100WBC 04/29/24 20:05 Sodium 141 mmol/L (136-145) 04/29/24 20:05 Potassium 4.1 mmol/L (3.5-5.1) 04/29/24 20:05 Chloride 103 mmol/L (98-107) 04/29/24 20:05 Carbon Dioxide 27 mmol/L (22-29) 04/29/24 20:05 Anion Gap 15.1 (5-19) 04/29/24 20:05 BUN 18 mg/dL (6-20) 04/29/24 20:05 Creatinine 0.7 mg/dL (0.5-0.9) 04/29/24 20:05 GFR Calculation 89.7 mL/min (90-130) L 04/29/24 20:05 Glucose 99 mg/dL (65-115) 04/29/24 20:05 Calculated Osmolality 294 mOsm/kg (285-295) 04/29/24 20:05 Calcium 9.4 mg/dL (8.5-10.5) 04/29/24 20:05 Total Bilirubin 0.2 mg/dL (0.15-1.2) 04/29/24 20:05 AST 22 U/L (0-32) 04/29/24 20:05 ALT 25 U/L (0-33) 04/29/24 20:05 Alkaline Phosphatase 85 U/L (35-105) 04/29/24 20:05 Troponin T Baseline < 6 ng/L (0-10) 04/29/24 20:05 Troponin T 120 Minute 6.00 ng/L (0-10) 04/29/24 22:10 Delta Troponin T [id number] ABS# (0-10) 04/29/24 22:10 Total Protein 6.9 g/dL (6.6-8.7) 04/29/24 20:05 Albumin 4.5 g/dL (3.5-5.2) 04/29/24 20:05 Globulin 2.4 g/dL (1.3-4.6) 04/29/24 20:05 Lipase 28 U/L (13-60) 04/29/24 20:05 All radiology interpretation(s) finalized by discharge Discharge Plan Discharge Patient Disposition: Home Clinical Impression: Non-cardiac chest pain Condition: Stable Prescriptions: No Action nitrofurantoin monohyd/m-cryst [Macrobid] 100 mg capsule 100 mg PO BID PRN Rx Instructions: must administer with a meal/food naproxen 500 mg tablet 500 mg PO BID tamsulosin 0.4 mg capsule 0.4 mg PO DAILY Qty: 30 1RF Percocet 7.5-325 mg tablet 1 tab PO Q6H PRN (Reason: pain) Qty: 14 0RF promethazine 25 mg tablet 25 mg PO Q6H PRN (Reason: nausea and vomiting) Qty: 20 0RF Percocet 7.5-325 mg tablet 1 tab PO Q6H PRN (Reason: pain) Qty: 20 0RF tamsulosin 0.4 mg capsule 0.4 mg PO DAILY Qty: 20 0RF Discharge Orders: Discharge ED (Routine); Ordered 04/29/24 Ordered By: Zuleyma Fernandez Referrals: Gladis Garcia DO [Primary Care Provider] - Discharge Diet: Usual diet Discharge Activity: Resume usual activity Patient Instructions: Noncardiac Chest Pain (ED), Opioid Safety, Pain Management Activity Restrictions/Additional Instructions: Thank you for choosing [facility] for your healthcare needs today. Please realize this is an emergency room and that we are providing you with a medical screening exam and this may not be complete and all inclusive of all the testing and or work up that you may need to determine your ailment or severity of your illness. You have been screened and evaluated and felt safe for discharge. Health conditions do change or evolve sometimes and as such it is important that you follow up with your Primary Doctor to be re checked, 3-5 days is a general good time frame for follow up. You are always welcome to return to the ED for re assessment if your symptoms are worsening or you have new concerns Coding Level of Care Code ED Care Aide for Adelita Burger
[2024-04-29 22:23] VITALS: BP 154/95; PULSE 82; RESP 17; O2SAT 100
[2024-04-29 22:39] LABS: Troponin 5 2HR Delta 0.00001 ABS# (0-10)
[2024-04-30 00:10] VITALS: BP 130/84; PULSE 81; O2SAT 98
== END 2024-04-30 00:07 | disposition home or self-care (01) ==
PROVIDERS: Emergency Medicine; Emergency Provider Emergency Medicine; PCP Family Medicine
DX: R07.89 Other chest pain (principal)
CPT/HCPCS: 36415; 71045; 80053; 83690; 84484; 85025; 93005; 99285

== ENCOUNTER 2024-07-03 19:56 | Emergency (ER) | payer BC, SELFPAY ==
[2024-07-03 19:59] VITALS: BP 107/74; PULSE 113; RESP 18; TEMP 36.8; O2SAT 96; BMI 23.5
--- NOTE | 2024-07-03 20:10 | CTR_ITS ---
PROCEDURE INFORMATION: Exam: CT Abdomen And Pelvis Without Contrast Exam date and time: 07/04/2024 2:00 AM Age: 49 years old Clinical indication: Abdominal pain; C/O left flank pain. History of left proximal and mid ureteral stones from CT in jan. ; Additional info: Left flank pain, history of kidney stones TECHNIQUE: Imaging protocol: Computed tomography of the abdomen and pelvis without contrast. Radiation optimization: All CT scans at this facility use at least one of these dose optimization techniques: automated exposure control; mA and/or kV adjustment per patient size (includes targeted exams where dose is matched to clinical indication); or iterative reconstruction. COMPARISON: CT kidney stone [id number] 01/13/2024 2:31 PM RADIATION DOSE METRICS: Total DLP (mGy-cm): 374.81 FINDINGS: Liver: Unremarkable. No mass. Gallbladder and biliary ducts: Unremarkable. No calcified stones. No ductal dilation. Pancreas: Unremarkable. No ductal dilation. Spleen: Unremarkable. No mass. Adrenal glands: Unremarkable. No mass. Kidneys and ureters: Bilateral nephrolithiasis. Moderate left hydroureteronephrosis with several stones within the left distal ureter, largest measuring upwards of 9 mm in size (series 5, image 8). Stomach and bowel: Unremarkable. No obstruction. No significant mucosal thickening. Appendix: No evidence of appendicitis. Intraperitoneal space: No free air. No significant fluid collection. Vasculature: No abdominal aortic aneurysm. Lymph nodes: No enlarged lymph nodes. Urinary bladder: Unremarkable as visualized. Reproductive: Bilateral adnexal complex lesions. The right lesion appears grossly unchanged in size but the left lesion demonstrates interval enlargement, now measuring upwards of 5.1 cm. Bones/joints: No acute fracture. No suspicious lesion. Soft tissues: No bowel containing hernia. CT/CT kidney stone [id number] IMPRESSION: 1. Moderate left hydroureteronephrosis with several stones in the left distal ureter measuring upwards of 9 mm in size. Bilateral nephrolithiasis. 2. Persistent bilateral adnexal complex lesions with interval enlargement of the left lesion. Recommend further evaluation with pelvic ultrasound.
[2024-07-03 21:12] LABS: Basophils % 0.3 %; Hematocrit 42.4 % (36-47); Lymphocytes # 0.7 10^3/uL (0.8-4.8); Lymphocytes % 5.5 %; Mean Corpuscular HGB Conc 32.5 g/dL (30-55); Mean Corpuscular Hemoglobin 31.7 pg (27-33); Mean Corpuscular Volume 97.2 fl (85-98); Mean Platelet Volume 10.4 fL (7.4-10.4); Monocytes # 0.7 10^3/uL (0.2-0.9); Neutrophils % 88.9 %; Nucleated Red Blood Cells % 0 %; Platelet Count 234 10^3/cmm (157-399); Red Blood Count 4.36 10^6/uL (3.85-5.65); Red Cell Distribution Width 11.9 % (12.1-15.1); White Blood Count 13.17 10^3/uL (3.29-11.43)
[2024-07-03 21:36] LABS: Alanine Aminotransferase 21 U/L (0-33); Albumin Level 4.2 g/dL (3.5-5.2); Alkaline Phosphatase 79 U/L (35-105); Anion Gap 16.3 (5-19); Aspartate Amino Transferase 18 U/L (0-32); Blood Urea Nitrogen 20 mg/dL (6-20); Calcium 8.9 mg/dL (8.5-10.5); Carbon Dioxide 25 mmol/L (22-29); Chloride 103 mmol/L (98-107); Creatinine Clr Calc Pharmacy 77.4465; Globulin 2.6 g/dL (1.3-4.6); Glomerular Filtration Rate 66.8 mL/min (90-130); Glucose 131 mg/dL (65-115); Osmolality Calculated 294 mOsm/kg (285-295); Potassium 4.3 mmol/L (3.5-5.1); Sodium 140 mmol/L (136-145); Total Bilirubin 0.6 mg/dL (0.15-1.2); Total Protein 6.8 g/dL (6.6-8.7)
[2024-07-04] VITALS (8 sets, daily range): BP systolic 102–125; BP diastolic 68–86; PULSE 91–107; RESP 18; O2SAT 97–99
--- NOTE | 2024-07-04 01:56 | W.ED.FEMALGU ---
HPI - Female Genitourinary General: Chief complaint: Urogenital-Female Stated complaint: Kidney stone N/V Time Seen by Provider: 07/04/24 01:40 History of Present Illness: Patient presents to the ER with left flank pain that sharp and stabbing radiates down toward the pelvis. Patient's had multiple stones in the past and she said this feels like. Patient used to see Dr. Gil. Patient tried taking pain medicine at home but even with the Zofran and Phenergan she was unable to keep anything down. She rates pain 8 out of 10 currently. She has vomited 3 times today. Patient denies any fever or chills. Related Data Home Medications ?Medication ?Instructions ?Recorded ?Confirmed naproxen 500 mg tablet 500 mg PO BID 03/08/22 03/08/22 nitrofurantoin 100 mg PO BID PRN 03/08/22 monohydrate/macrocrystals 100 mg capsule (Macrobid) Previous Rx's ?Medication ?Instructions ?Recorded oxycodone-acetaminophen 7.5 mg-325 1 tab PO Q6H PRN pain #14 tabs 02/14/20 mg tablet (Percocet) tamsulosin 0.4 mg capsule 0.4 mg PO DAILY #30 caps 11/22/21 oxycodone-acetaminophen 7.5 mg-325 1 tab PO Q6H PRN pain #20 tabs 01/13/24 mg tablet (Percocet) promethazine 25 mg tablet 25 mg PO Q6H PRN nausea and 01/13/24 vomiting #20 tabs tamsulosin 0.4 mg capsule 0.4 mg PO DAILY #20 caps 01/13/24 ciprofloxacin HCl 500 mg tablet 250 mg (1/2 x 500 mg) PO BID #20 07/04/24 tabs ondansetron 4 mg disintegrating 4 mg PO Q6H PRN nausea and 07/04/24 tablet vomiting #20 tabs tamsulosin 0.4 mg capsule (Flomax) 0.4 mg PO DAILY #30 caps 07/04/24 Allergies Allergy/AdvReac Type Severity Reaction Status Date / Time No Known Allergies Allergy Verified 04/29/24 19:59 Review of Systems General: Reports: 10 or more systems reviewed and unremarkable except in HPI and below PFSH ED PFSH: Medical History Recurrent UTI Urolithiasis Multi stone former with both spontaneous passage and surgical intervention required previously. 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 Physical Exam Const: COMMON NORMALS: no acute distress, average body habitus, patient oriented x3, no limitations, healthy appearing, alert and well nourished HENMT: COMMON NORMALS: normocephalic, atraumatic, hearing grossly normal bilaterally, external ears normal, Normal external nose present, moist oral mucous membranes and oropharynx normal HEAD & SCALP: normocephalic and atraumatic NOSE: Normal external nose present EXTERNAL EAR: Yes external ears normal Neck/C-Spine: COMMON NORMALS: no JVD Chest: COMMONS NORMALS: normal inspection of the chest and normal palpation of entire chest wall Resp: COMMON NORMALS: normal respiratory effort, No retractions, No use of accessory muscles and clear to auscultation bilaterally AUSCULTATION: clear to auscultation bilaterally Cardio: COMMON NORMALS: no JVD, regular rate, regular rhythm, S1 normal heart sound present, S2 normal heart sound present, No gallops present (Cardio), No clicks present (Cardio), No murmurs present (Cardio) and No rub (Cardio) RATE: regular rate RHYTHM: regular rhythm HEART SOUNDS: S1 normal heart sound present and S2 normal heart sound present GI: COMMON NORMALS: Normal to inspection, nondistended, normoactive bowel sounds present, Soft to palpation, non-tender, No hepatosplenomegaly present and no masses PALPATION: Yes Soft to palpation and Yes No hepatosplenomegaly present Neuro: COMMON NORMALS: patient oriented x3 SENSORIUM/ORIENTATION: Yes alert Course Vital Signs: Vital signs: Vital Signs Temperature 98.3 F 07/03/24 19:59 Pulse Rate 113 H 07/03/24 19:59 Respiratory Rate 18 07/03/24 19:59 Blood Pressure 107/74 07/03/24 19:59 Pulse Oximetry 96 07/03/24 19:59 Oxygen Delivery Me thod Room Air 07/03/24 19:59 MDM - Female Medical Decision Making Lab work showed a white count of 13, hemoglobin 13, BUN/creatinine 20 and 0.9, UA showed 1+ leukocyte Estrace and too numerous blood cells to count, abdomen/pelvis CT scan showed moderate left hydro with several stones in the left distal ureter measuring upwards of 9 mm. Patient be placed on Flomax, ciprofloxacin Zofran ODT and referred to urology. Medical Records I reviewed the patient's medical records. Lab Data I reviewed the patient's lab results. 07/03/24 20:40 07/03/24 20:40 Radiology Impressions Abdomen/Pelvis CT 07/03/24 20:10 IMPRESSION: 1. Moderate left hydroureteronephrosis with several stones in the left distal ureter measuring upwards of 9 mm in size. Bilateral nephrolithiasis. 2. Persistent bilateral adnexal complex lesions with interval enlargement of the left lesion. Recommend further evaluation with pelvic ultrasound. Laboratory Results WBC 13.17 10^3/uL (3.29-11.43) H 07/03/24 20:40 RBC 4.36 10^6/uL (3.85-5.65) 07/03/24 20:40 Hgb 13.80 g/dL (11.27-16.99) 07/03/24 20:40 Hct 42.4 % (36-47) 07/03/24 20:40 MCV 97.2 fl (85-98) 07/03/24 20:40 MCH 31.7 pg (27-33) 07/03/24 20:40 MCHC 32.5 g/dL (30-55) 07/03/24 20:40 RDW 11.9 % (12.1-15.1) L 07/03/24 20:40 Plt Count 234 10^3/cmm (157-399) 07/03/24 20:40 MPV 10.4 fL (7.4-10.4) 07/03/24 20:40 Neut % (Auto) 88.9 % 07/03/24 20:40 Lymph % (Auto) 5.5 % 07/03/24 20:40 [place] % (Auto) 5.0 % 07/03/24 20:40 Eos % (Auto) 0.0 % 07/03/24 20:40 Baso % (Auto) 0.3 % 07/03/24 20:40 Neut # (Auto) 11.70 10^3/uL (1.8-7.7) H 07/03/24 20:40 Lymph # (Auto) 0.7 10^3/uL (0.8-4.8) L 07/03/24 20:40 [place] # (Auto) 0.7 10^3/uL (0.2-0.9) 07/03/24 20:40 Eos # (Auto) 0.0 10^3/uL (0.0-0.8) 07/03/24 20:40 Baso # (Auto) 0.0 10^3/uL (0.0-0.1) 07/03/24 20:40 Nucleated RBC % (auto) 0 % 07/03/24 20:40 Nucleated RBCs # 0.0 /100WBC 07/03/24 20:40 Sodium 140 mmol/L (136-145) 07/03/24 20:40 Potassium 4.3 mmol/L (3.5-5.1) 07/03/24 20:40 Chloride 103 mmol/L (98-107) 07/03/24 20:40 Carbon Dioxide 25 mmol/L (22-29) 07/03/24 20:40 Anion Gap 16.3 (5-19) 07/03/24 20:40 BUN 20 mg/dL (6-20) 07/03/24 20:40 Creatinine 0.9 mg/dL (0.5-0.9) 07/03/24 20:40 GFR Calculation 66.8 mL/min (90-130) L 07/03/24 20:40 Glucose 131 mg/dL (65-115) H 07/03/24 20:40 Calculated Osmolality 294 mOsm/kg (285-295) 07/03/24 20:40 Calcium 8.9 mg/dL (8.5-10.5) 07/03/24 20:40 Total Bilirubin 0.6 mg/dL (0.15-1.2) 07/03/24 20:40 AST 18 U/L (0-32) 07/03/24 20:40 ALT 21 U/L (0-33) 07/03/24 20:40 Alkaline Phosphatase 79 U/L (35-105) 07/03/24 20:40 Total Protein 6.8 g/dL (6.6-8.7) 07/03/24 20:40 Albumin 4.2 g/dL (3.5-5.2) 07/03/24 20:40 Globulin 2.6 g/dL (1.3-4.6) 07/03/24 20:40 Urine Color Red (Yellow) A 07/04/24 02:00 Urine Appearance Cloudy (CLEAR) A 07/04/24 02:00 Urine pH 6.5 (5-7) 07/04/24 02:00 Ur Specific [place] 1.022 (1.005-1.030) 07/04/24 02:00 Urine Protein 2+ (Negative) A 07/04/24 02:00 Urine Glucose (UA) Negative (Normal) 07/04/24 02:00 Urine Ketones 2+ (Negative) H 07/04/24 02:00 Urine Blood 3+ (Negative) A 07/04/24 02:00 Urine Nitrate Negative (Negative) 07/04/24 02:00 Urine Bilirubin Negative (Negative) 07/04/24 02:00 Urine Urobilinogen 1.0 mg/dL (Negative) 07/04/24 02:00 Ur Leukocyte Esterase 1+ (Negative) A 07/04/24 02:00 Urine RBC Too numerous to cnt /hpf (0-2) H 07/04/24 02:00 Urine WBC 0-4 /hpf (0-5) H 07/04/24 02:00 Ur Squamous Epith Cells 0-4 /hpf (0-5) H 07/04/24 02:00 Amorphous Sediment Not Reportable 07/04/24 02:00 Urine Bacteria Trace /hpf (NONE) 07/04/24 02:00 All radiology interpretation(s) finalized by discharge Discharge Plan Discharge Patient Disposition: Home Clinical Impression: Kidney stone on left side Condition: Stable Prescriptions: New tamsulosin [Flomax] 0.4 mg capsule 0.4 mg PO DAILY Qty: 30 0RF ciprofloxacin HCl 500 mg tablet 250 mg PO BID Qty: 20 0RF ondansetron 4 mg tablet,disintegrating 4 mg PO Q6H PRN (Reason: nausea and vomiting) Qty: 20 0RF No Action nitrofurantoin monohyd/m-cryst [Macrobid] 100 mg capsule 100 mg PO BID PRN Rx Instructions: must administer with a meal/food naproxen 500 mg tablet 500 mg PO BID tamsulosin 0.4 mg capsule 0.4 mg PO DAILY Qty: 30 1RF Percocet 7.5-325 mg tablet 1 tab PO Q6H PRN (Reason: pain) Qty: 14 0RF promethazine 25 mg tablet 25 mg PO Q6H PRN (Reason: nausea and vomiting) Qty: 20 0RF Percocet 7.5-325 mg tablet 1 tab PO Q6H PRN (Reason: pain) Qty: 20 0RF tamsulosin 0.4 mg capsule 0.4 mg PO DAILY Qty: 20 0RF Discharge Orders: Discharge ED (Routine); Ordered 07/04/24 Ordered By: Vin Zambrano Referrals: Gladis Garcia DO [Primary Care Provider] - 1 week Patient Instructions: Kidney Stones (ED) Activity Restrictions/Additional Instructions: Activity restrictions/additional instructions: Thank you for choosing [facility] for your healthcare needs today. Please realize that you were seen in the emergency department and that we are providing you with an emergency medical screening exam and this may not be a complete and all exclusive of all testing and/or medical workup we may need to determine your element or severity of your illness. It is very important that you follow-up as instructed with your primary care provider or specialist for the additional evaluation and to discuss your medical treatment plan. You may return to the emergency department should you have concerns or if your condition changes or worsens in any way. Print Language: Honduran Coding Level of Care Code ED Signal Operator Technical for Adelita Burger
[2024-07-04 02:07] LABS: Bilirubin Urine Negative (Negative); Blood Urine 3+ (Negative); Glucose Urine UA Negative (Normal); Ketones Urine 2+ (Negative); Leukocyte Esterase Urine 1+ (Negative); Nitrate Urine Negative (Negative); Protein Urine 2+ (Negative); Specific Gravity, Urine 1.022 (1.005-1.030); Urine Appearance Cloudy (CLEAR); pH Urine 6.5 (5-7)
[2024-07-04] MEDS: ondansetron 2 mg/ML SDV 2 mL 4 MG IVP (02:29)
[2024-07-04] MEDS: ketorolac 30 mg/mL INJ IVP (02:30)
[2024-07-04 02:33] LABS: Add Urine Culture? Yes; Add Urine Microscopic? YES; Bacteria Urine TRACE /hpf; RBC Urine TOO NUMEROUS TO CNT /hpf (0-2); Squamous Epithelial Cell Urine 0-4 /hpf (0-5); UA Manual Slide Review YES; Urine Color Red (Yellow); WBC Urine 0-4 /hpf (0-5)
--- NOTE | 2024-07-06 08:00 | DCPLANNER ---
faxed referral to [facility]
== END 2024-07-04 04:01 | disposition home or self-care (01) ==
PROVIDERS: Emergency Provider Emergency Medicine; PCP Family Medicine
DX: N20.0 Calculus of kidney (principal); Z87.442 Personal history of urinary calculi
CPT/HCPCS: 36415; 74176; 80053; 81001; 85025; 87086; 96374; 96375; 99285; J1885; J2405